=== PATIENT | female | born 1980 | race Caucasian/White ===

== ENCOUNTER → 2016-10-07 | Outpatient (CLI) | payer BC ==
--- NOTE | 2016-10-07 18:35 | Diagnostic Imaging Report ---
Transabdominal and transvaginal pelvic ultrasound. INDICATION: Menometrorrhagia. FINDINGS: The uterus is 7.1 x 4.3 x 3.8 cm. The endometrial stripe is 0.8 cm in thickness. There is no myometrial focal lesion identified. Nabothian cysts in the cervix seen. The right ovary is 4.5 x 2.5 x 2.7 cm. The left ovary is 3.1 x 2.5 x 2.5 cm. Follicles are seen with 2.2 cm hypoechoic lesion in the right ovary identified with peripheral surrounding vascularity within the ovarian parenchyma probably representing a hemorrhagic follicle. The urinary bladder appears unremarkable. IMPRESSION: No significant abnormality. Dictated by: Dictated on workstation # [id number]
== END ==
LOC: RAD 14:32
PROVIDERS: ATTEND Obstetrics & Gynecology
DX: N92.1 Excessive and frequent menstruation with irregular cycle (principal)
CPT/HCPCS: 76830; 76856

== ENCOUNTER → 2017-08-25 | Outpatient (CLI) | payer BC ==
[~2017-08-25] VITALS: Ht 167.6 cm; Wt 63.5 kg
[~2017-08-25] MED LIST: CATHETER FLUSH 10 ML SYR IVP PRN; GADOBUTROL 7.5 MMOL/7.5 ML (GADAVIST) VIAL IV ONE; IOHEXOL 300 MG/ML 30 ML (OMNIPAQUE 300) VIAL IV ONE; LIDOCAINE 1% INJ 20 ML (XYLOCAINE) VIAL INJ ONE; LIDOCAINE 1% INJ 50 ML (XYLOCAINE) VIAL ONE
[2017-08-25 12:56] VITALS: BP 118/69
[2017-08-25 13:51] VITALS: BP 118/67
--- NOTE | 2017-08-25 14:37 | Diagnostic Imaging Report ---
EXAMINATION: Left shoulder injection for MRI. INDICATION: Shoulder pain Following aseptic preparation of the skin and administration of local anesthesia a 21-gauge needle was advanced into the glenohumeral joint using fluoroscopic guidance. A small amount of contrast was infused to assure the tip of needle was intra-articular. Subsequently a 12 cc mixture of Omnipaque, sodium chloride and Gadavist was infused. 23 seconds of fluoroscopy time was utilized. The patient tolerated the procedure well and was sent to the MRI suite in good condition. IMPRESSION: There has been successful injection of the left glenohumeral joint. MR is pending for further evaluation. Dictated by: Dictated on workstation # [id number]
--- NOTE | 2017-08-25 15:20 | Diagnostic Imaging Report ---
PROCEDURE: MRI left joint upper extremity with contrast. TECHNIQUE: Multiplanar, multisequence contrast-enhanced MRI of the left upper extremity was accomplished. INDICATION: Shoulder pain. FINDINGS: On the T1 fat-saturated coronal series, there is a linear area of increased signal extending through the superior labrum. This does seem more prominent than expected for the normal sublabral recess, and I suspect that this is related to a SLAP 2 tear. The labrum is otherwise intact. On the coronal IR series, there are small areas of altered signal within the substance of the rotator cuff. This abnormal signal does suggest tendinosis of the rotator cuff. Furthermore, there is some fluid in both the subacromial and subdeltoid bursa. This is indirect evidence that there is at least a partial tear of the rotator cuff. The bursal aspect of the rotator cuff is also somewhat irregular and may be slightly frayed. The supraspinatous muscle itself is not retracted however. There is mild hypertrophy of the acromioclavicular joint, and this does result in slight narrowing of the outlet for the supraspinatus muscle. The biceps tendon and the subscapularis tendon are intact. There is no abnormal signal arising from the osseous structures to suggest bone edema or a fracture. IMPRESSION: 1. There is a SLAP 2 tear of the labrum. 2. There does appear to be tendinosis of the rotator cuff. The fluid within the subacromial and subdeltoid bursa also is indirect evidence that there is a partial tear of the rotator cuff itself. 3. There is mild hypertrophy of the acromioclavicular joint, and this does result in slight narrowing of the outlet for the supraspinatus muscle. 4. There is no sign of an acute bony injury. Dictated by: Dictated on workstation # [id number]
== END ==
LOC: RAD 12:28
PROVIDERS: ATTEND Orthopaedic Surgery
DX: S43.432A Superior glenoid labrum lesion of left shoulder, initial encounter (principal); M89.38 Hypertrophy of bone, other site
CPT/HCPCS: 23350; 73040; 73222

== ENCOUNTER 2018-03-12 08:30 | Outpatient (RCR) | payer BC ==
[~2018-03-12 08:30] MED LIST changes: -CATHETER FLUSH 10 ML SYR IVP PRN; -GADOBUTROL 7.5 MMOL/7.5 ML (GADAVIST) VIAL IV ONE; -IOHEXOL 300 MG/ML 30 ML (OMNIPAQUE 300) VIAL IV ONE; -LIDOCAINE 1% INJ 20 ML (XYLOCAINE) VIAL INJ ONE; -LIDOCAINE 1% INJ 50 ML (XYLOCAINE) VIAL ONE; +REGADENOSON 0.4 MG/5 ML SYR (LEXISCAN) IV ONE
== END 2018-03-13 | disposition home or self-care (01) ==
LOC: CARD 08:30
PROVIDERS: ATTEND Nurse Practitioner Family
DX: R00.2 Palpitations (principal)
CPT/HCPCS: 93270

== ENCOUNTER → 2018-06-03 | Outpatient (CLI) | payer BC | LOC: CARD 11:54 | PROVIDERS: ATTEND Internal Medicine Cardiovascular Disease | DX: I47.1 Supraventricular tachycardia (principal) | CPT/HCPCS: 93306 ==

== ENCOUNTER 2019-05-16 13:24 | Outpatient (RCR) | payer BC | END 2019-08-14 | disposition home or self-care (01) | LOC: RAD 13:24 | PROVIDERS: ATTEND Nurse Practitioner Family | DX: R00.2 Palpitations (principal) ==

== ENCOUNTER → 2019-05-16 | Outpatient (CLI) | payer BC | LOC: CARD 13:31 | PROVIDERS: ATTEND Nurse Practitioner Family | DX: R00.2 Palpitations (principal) | CPT/HCPCS: 93306; 93351 ==

== ENCOUNTER 2021-09-10 08:04 | Outpatient (RCR) | payer BC | END 2021-09-11 | disposition home or self-care (01) | DX: M54.50 Low back pain, unspecified (principal) ==

== ENCOUNTER 2021-10-01 14:12 | Outpatient (RCR) | payer BC | END 2021-10-11 | disposition home or self-care (01) | DX: M54.50 Low back pain, unspecified (principal) ==

== ENCOUNTER 2021-11-05 14:44 | Outpatient (RCR) | payer BC | END 2021-11-11 | disposition home or self-care (01) | DX: M54.50 Low back pain, unspecified (principal) ==

== ENCOUNTER 2021-11-25 15:13 | Outpatient (RCR) | payer BC | END 2021-12-11 | disposition home or self-care (01) | DX: M54.50 Low back pain, unspecified (principal) ==

== ENCOUNTER → 2022-02-11 | Outpatient (CLI) | payer BC | LOC: CARD 13:00 | PROVIDERS: ATTEND Nurse Practitioner Family | DX: R55 Syncope and collapse (principal) | CPT/HCPCS: 93225; 93226 ==

== ENCOUNTER → 2022-05-13 | Outpatient (RCR) | payer BC | END | disposition home or self-care (01) | DX: M54.2 Cervicalgia (principal) ==

== ENCOUNTER 2022-06-03 15:47 | Outpatient (RCR) | payer BC | END 2022-06-13 | disposition home or self-care (01) | DX: M53.82 Other specified dorsopathies, cervical region (principal); M53.86 Other specified dorsopathies, lumbar region; M25.512 Pain in left shoulder; M25.511 Pain in right shoulder ==

== ENCOUNTER 2022-07-07 15:25 | Outpatient (RCR) | payer BC | END 2022-07-14 | disposition home or self-care (01) | DX: M53.82 Other specified dorsopathies, cervical region (principal); M53.86 Other specified dorsopathies, lumbar region; M25.512 Pain in left shoulder; M25.511 Pain in right shoulder ==

== ENCOUNTER 2022-12-10 14:23 | Outpatient (RCR) | payer BC | END 2022-12-11 | disposition home or self-care (01) | DX: M54.2 Cervicalgia (principal) ==

== ENCOUNTER 2023-01-11 15:45 | Outpatient (RCR) | payer BC | END 2023-01-12 01:26 | disposition home or self-care (01) | DX: M54.2 Cervicalgia (principal) ==

== ENCOUNTER 2023-01-26 14:28 | Outpatient (RCR) | payer BC | END 2023-02-11 | disposition home or self-care (01) | DX: M54.12 Radiculopathy, cervical region (principal) ==

== ENCOUNTER 2023-04-07 15:07 | Outpatient (RCR) | payer BC | END 2023-04-13 | disposition home or self-care (01) | DX: M54.12 Radiculopathy, cervical region (principal) ==

== ENCOUNTER 2023-05-12 15:59 | Outpatient (RCR) | payer BC | END 2023-05-13 | disposition home or self-care (01) | DX: M54.12 Radiculopathy, cervical region (principal) ==